=== PATIENT | male | born 2000 | race Caucasian/White ===

== ENCOUNTER 2021-11-01 16:49 | Emergency (ER) | payer OTHER ==
[2021-11-01] MEDS ORDERED: CLEOCIN300 MG PO (21:57)
== END 2021-11-01 22:20 | disposition home or self-care (01) ==
LOC: FER 16:49
DX: L05.01 Pilonidal cyst with abscess (principal); L98.9 Disorder of the skin and subcutaneous tissue, unspecified; Z88.2 Allergy status to sulfonamides
CPT/HCPCS: 87070; 87205; 99283